=== PATIENT | female | born 2000 | race Caucasian/White ===

== ENCOUNTER 2024-05-23 09:03 | Inpatient (IN) | payer OTHER ==
[2024-05-23] VITALS (52 sets, daily range): BP systolic 112–159; BP diastolic 58–95; PULSE 55–96; TEMP 98.1–99.2
[~2024-05-23] VITALS: Ht 160.1 cm; Wt 87.3 kg
--- NOTE | 2024-05-23 09:05 | NUR ---
PATIENT AMBULATORY TO UNIT WITH SIGNIFICANT OTHER, SINGH. PATIENT REPORTS LEAKING OF FLUID SINCE 0845, NO CONTRACTIONS OR VAGINAL BLEEDING AND GOOD MOVEMENT. PATIETN ASSISTED INTO A GOWN AND ORIENTED TO ROOM. EFM AND TOCO PLACED AND TRACING WELL. SVE /-3, AMNITRACE POSITIVE. ASSESSMENTS COMPLETED.
[2024-05-23] MEDS ORDERED: PRENATAL (09:29)
[2024-05-23] MEDS ORDERED: ONE DAILY MULTI1 TA1 (09:30)
[2024-05-23] MEDS ORDERED: LR & Oxytocin 500 ML IV SCH (09:45)
[2024-05-23] MEDS ORDERED: LR 1,000 ML IV SCH (09:45)
[2024-05-23] MEDS ORDERED: LR 1,000 ML IV PRN (09:45)
[2024-05-23 10:31] LABS: HEMATOCRIT 38.9 % (37.0-47.0); HEMOGLOBIN 13.1 g/dl (12.5-16.0); MEAN CELL VOLUME 89 fl (80.0-100.0); MEAN CORPUSCULAR HEMOGLOBIN 30 pg (27-31); MEAN CORPUSCULAR HGB CONC 34 g/dl (33.0-37.0); MEAN PLATELET VOLUME 10.9 fl (7.4-10.4); PLATELET COUNT 212 K/mm3 (130-400); RED BLOOD COUNT 4.39 M/mm3 (4.10-5.30); REDCELL DISTRIBUTION WIDTH-CV 14.8 % (11.5-14.5)
[2024-05-23] MEDS ORDERED: diphenhydrAMINE 25 MG CAP PO PRN (11:00)
[2024-05-23] MEDS ORDERED: LR 500 ML IV PRN (11:00)
[2024-05-23] MEDS ORDERED: ePHEDrine 50 MG/10 ML VIAL IV PRN (11:00)
[2024-05-23] MEDS ORDERED: Naloxone 0.4 MG/ML VIAL IV PRN (11:00)
[2024-05-23] MEDS ORDERED: diphenhydrAMINE 50 MG/ML 1 ML VIAL IV PRN (11:00)
[2024-05-23] MEDS ORDERED: Ondansetron 4 MG/2 ML VIAL IV PRN (11:00)
[2024-05-23] MEDS ORDERED: LR 1,000 ML IV ONE (11:00)
[2024-05-23 11:14] LABS: LYMPHOCYTE 20 % (20.0-51.0); NEUTROPHILS 76 % (42.0-75.2); PLATELET ESTIMATE NORMAL (NORMAL)
[2024-05-23 11:49] LABS: TRICYCLIC ANTIDEPRESS URINE NEGATIVE (NEGATIVE)
--- NOTE | 2024-05-23 12:05 | NUR ---
TO BEDSIDE TO ASSESS PATIENT PROGRESS, SVE /-3. PASSING OFF TO .
[2024-05-23] MEDS ORDERED: ROPivacaine PF 0.2% 200 ML IV ONE (14:35)
--- NOTE | 2024-05-23 15:25 | NUR ---
PATIENT REPOSITIONED TO RIGHT LATERAL "FLYING COWGIRL" WITH PEANUT BALL BETWEEN ANKLES. TOCO ADJUSTED TO TRACE CONTRACTIONS.
--- NOTE | 2024-05-23 15:45 | NUR ---
PATIENT REPOSITIONED TO LEFT LATERAL "FLYING COWGIRL" WITH PEANUTBALL BETWEEEN ANKLES.
--- NOTE | 2024-05-23 15:51 | NUR ---
THIS RN TO BEDSIDE TO ADJUST TOCO, TOCO ADJUSTED AND TRACING WELL.
--- NOTE | 2024-05-23 20:31 | NUR ---
DR HERNANDEZ GIVEN UP ON PT STATUS. SVE 8100/0, VARIABLES AND EARLY DECELS. PT FEELING PRESSURE BUT DOING WELL. TEMP 99.2.
--- NOTE | 2024-05-23 21:15 | NUR ---
PT FEELING ALOT OF PRESSURE AND NEED TO HAVE BM. SVE /+1. CHANGED PT TO REMIGIO POSITION. TEMP 99.1
--- NOTE | 2024-05-23 22:05 | NUR ---
DR HERNANDEZ HER ON UNIT. UPDATE GIVEN ON SVE /+1, TACHYCARDIA MATERNAL TEMP THE LAST 3 TIMES IS 99.1, 99.2 PT FEELING INTENSE PRESSURE. NO NEW ORDERS.
--- NOTE | 2024-05-23 23:50 | NUR ---
DR HERNANDEZ HERE DISCUSSED WITH PT TO ATTEMPT THE VACUUM TO ASSISST HER DURING PUSHING. BABY IS TACHYCARDIC AND IT WOULD BENEFIT THE BABY TO GET HIM OUT. PT AGREES. VAC ON 2353 FOR 50 SECS. PRESSURE OFF VAC ON 2354 FOR 50 SECS, PRESSURE OFF VAC ON 2357 FOR [address] HERNANDEZ CHECKED FOR ANY DECENT OF THE BABY. NONE NOTED. DISCUSSED WITH PT THE PLAN OF CARE AND HE FEELS WE SHOULD DO A C/S BECAUSE THE BABY DID NOT COME DOWN WITH THE VAC ASSIST. PT AGREES AND IS FINE WITH C/S. 0000 C/S CALLED OR TEAM CALLED, STEPHEN MORALES NOTIFIED. SHORT CATH REPLACED WITH SLIGHT BLOOD TINGED URINE. ABD PREP DONE, PT HAD ALREADY SHAVED ABD AT HOME. 0010 OFF MONITORS AND PT TRANFERED TO OR 1 FOR PRIMARY C/S.
[2024-05-24] VITALS (21 sets, daily range): BP systolic 114–179; BP diastolic 68–89; PULSE 71–90; TEMP 98–99.2
[2024-05-24] MEDS ORDERED: Ketorolac 60 MG/2 ML VIAL IM ONE (00:07)
[2024-05-24] MEDS ORDERED: Phenylephrine 10 MG/ML VIAL ONE (00:07)
[2024-05-24] MEDS ORDERED: Ondansetron 4 MG/2 ML VIAL ONE (00:07)
[2024-05-24] MEDS ORDERED: Oxytocin 10 UNITS/ML VIAL ONE ×2 (00:07→00:41)
[2024-05-24] MEDS ORDERED: NS 20 ML IV ONE (00:07)
[2024-05-24] MEDS ORDERED: dexAMETHasone 10 MG/ML VIAL ONE (00:17)
[2024-05-24] MEDS ORDERED: Meperidine 50 MG/ML 1 ML VIAL ONE (00:24)
[2024-05-24] MEDS ORDERED: Tranexamic Acid 1,000 MG/10 ML VIAL ONE (00:28)
[2024-05-24] MEDS ORDERED: LR 1,000 ML IV ONE ×2 (00:39→00:40)
[2024-05-24] MEDS ORDERED: Loratadine 10 MG TAB PO PRN (01:15)
[2024-05-24] MEDS ORDERED: Magnes Hydrox (MOM) 80 MG/ML 30 ML CUP PO PRN (01:15)
[2024-05-24] MEDS ORDERED: Tdap Vaccine 0.5 ML SYRINGE IM SCH (03:15)
[2024-05-24] MEDS ORDERED: Ondansetron 4 MG/2 ML VIAL IV PRN (03:15)
[2024-05-24] MEDS ORDERED: Morphine 4 MG/ML VIAL IV PRN (03:15)
[2024-05-24] MEDS ORDERED: oxyCODONE/Acetaminophen 5-325 MG TAB PO PRN (03:15)
[2024-05-24] MEDS ORDERED: Naloxone 0.4 MG/ML VIAL IV PRN (03:15)
[2024-05-24] MEDS ORDERED: Measles/Mumps/Rubella Virus Vaccine Live w Diluent 0.5 ML VIAL SQ SCH (03:15)
[2024-05-24] MEDS ORDERED: LR 1,000 ML IV PRN (03:15)
[2024-05-24] MEDS ORDERED: Ibuprofen 800 MG TAB PO SCH (07:07)
[2024-05-24] MEDS ORDERED: Sennosides/Docusate 8.6-50 MG TAB PO SCH (08:00)
[2024-05-24] MEDS ORDERED: traZODone 50 MG TAB PO PRN (21:00)
[2024-05-25] MEDS ORDERED: PERCOCET 325 MG1 TA2 PO (08:32)
[2024-05-25] MEDS ORDERED: IBU800 M1 PO (08:32)
[2024-05-25 09:00] VITALS: BP 126/83; PULSE 113; TEMP 98.5
[2024-05-25 17:00] VITALS: BP 117/74; PULSE 91; TEMP 98.1
--- NOTE | 2024-05-26 09:22 | NUR ---
Social Work, Katherin Bloom on unit. Order for Financial Investment Manager consult put in for risk of drug in . Cord stat was sent, however there is no history noted; when asking the patient, there was history of marijuana use prior to in the last 2 years, but none after +hcg. No concerns from this RN , Katherin states no need to see the patient.
[2024-05-26 09:57] VITALS: BP 126/85; PULSE 96; TEMP 98.9
[2024-05-26] MEDS ORDERED: Polyethylene Glycol 3350 17 GM PDS PO SCH (11:01)
[2024-05-26 20:00] VITALS: BP 143/88; PULSE 81; TEMP 98.6
[2024-05-27 07:17] VITALS: BP 156/89; PULSE 69; TEMP 97.8
[2024-05-27 07:36] VITALS: BP 151/94; PULSE 74
[2024-05-27 10:45] VITALS: BP 114/84; PULSE 96
--- NOTE | 2024-05-27 12:29 | NUR ---
DISCHARGE INSTRUCTIONS REVIEWED WITH PATIENT AND SIGNIFICANT OTHER. PATIENT VERBALIZES UNDERSTANDING. PATIENT AMBULATORY OFF UNIT WITH SIGNIFICANT OTHER CARRYING NANCY CASTROEAT. PATIENT DISCHARGED IN STABLE CONDITION.
--- NOTE | 2024-05-28 13:28 | NUR ---
On 05/26/24, social media project manager met with FELI Mcmullen to discuss social work referral for patient. Kemi advised that there is no concerns for drug usage or any other concern and that social work services are not needed for patient.
== END 2024-05-27 12:29 | disposition home or self-care (01) | DRG 788 ==
LOC: LDRO 09:03 → LDR 09:05 → LDRO 10:43 → OB 10:44 → LDR 10:44 → OB 05-24 08:00
PROVIDERS: ADMIT Obstetrics & Gynecology
PROC: 10D00Z1 Extraction of Products of Conception, Low, Open Approach (ICD-10-PCS; principal; 2024-05-23)
DX: O76 Abnormality in fetal heart rate and rhythm complicating labor and delivery (principal); Z37.0 Single live birth; Z3A.39 39 weeks gestation of pregnancy
CPT/HCPCS: J0665; J0690; J1100; J1885; J2175; J2371; J2405; J2590; J2795; J7120